=== PATIENT | female | born 1930 | race Caucasian/White ===

== ENCOUNTER → 2017-06-17 | Outpatient (CLI) | payer MEDICARE, OTHER | END | disposition home or self-care (01) | LOC: GMAB 14:39 | PROVIDERS: ATTEND Family Medicine | DX: N39.0 Urinary tract infection, site not specified (principal) ==

== ENCOUNTER → 2018-04-07 | Outpatient (CLI) | payer MEDICARE, OTHER | LOC: GMAB 11:45 | PROVIDERS: ATTEND Family Medicine | DX: M10.9 Gout, unspecified (principal); E03.9 Hypothyroidism, unspecified; I10 Essential (primary) hypertension ==

== ENCOUNTER → 2018-12-15 | Outpatient (CLI) | payer MEDICARE, OTHER ==
--- NOTE | 2018-12-16 12:44 | CT ---
EXAM DESCRIPTION: Abdomen/Pelvis w/wo Contrast: Computed Tomography. CLINICAL HISTORY: LLQ ABDOMINAL PAIN COMPARISON: None. TECHNIQUE: Spiral-axial scans at 5 x 5 mm intervals through the abdomen and pelvis before and after standard dose nonionic IV contrast. No oral contrast. Coronal and sagittal 2 x 2 mm reconstructions, portal venous phase contrast. 5 mm Delayed helical-axial scans, liver through the pubic symphysis, followed by repeat sagittal and coronal reconstructions. No adverse reactions. Total Exam DLP 3019.58 mGy - cm. This exam was performed according to our departmental CT dose-optimization program which includes automated exposure control, adjustment of the mA and/or kV according to patient size and/or use of iterative reconstruction technique; to reduce radiation dose to as low as reasonably achievable (ALARA). FINDINGS: Lung bases and pleura: Pleural thickening versus small effusion left base. Questionable calcification in the left pleural thickening. Minimal atelectasis in the left base. Atherosclerotic aortic and coronary artery calcifications. Liver, Stomach, Spleen, Adrenal Glands: 2 cm cyst in the right hepatic lobe. 3 cm cyst in the left hepatic lobe. Other smaller cysts are also present. Long axis of the right lobe is 20.1 cm. Stomach and other solid organs are negative. Pancreas, Gallbladder, Ducts: Gallbladder slightly distended. Common bile duct not dilated. Pancreas unremarkable. Kidneys and Ureters: Bilateral prominent extrarenal pelves. Small cysts bilaterally. Also 4 cm cyst upper pole left kidney. Minimal cortical thinning left kidney. Bilateral ureters are unremarkable. Mesentery: Bilateral physiologic pararenal thickening with no fluid. No free air or ascites. Aorta: Advanced atherosclerotic calcification with minimal narrowing of the distal lumen, no aorta, significant calcification of the ostia of the major branch vessels and also the proximal celiac axis and branch vessels, renal arteries, and the SMA. Ectasia of bilateral common iliac arteries. Small Bowel: Normal caliber. Terminal Ileum/Cecum: Normal caliber. Distention of the cecum by fecal matter. Appendix negative with normal appearance of the surrounding fat. Colon: Diffuse fecal material. Diverticula in the sigmoid colon with no complications. Evaluation of the pelvis limited due to scattering artifact from left total hip arthroplasty. Pelvic Organs: Distention of the urinary bladder with no radiodense stones. No fluid in the cul-de-sac. Low-density soft tissue mass abutting the base of the bladder, urethra, and vagina with mass effect on the anterior inferior bladder measuring approximately 4.0 x 3.5 x 3.1 cm with circumscribed margins. Spine and Bony Pelvis: Multiple levels of lumbar spondylosis and spondylolisthesis with bilateral posterior fusion construct L3-S1 and moderate anterolisthesis L5-S1. Levoscoliosis lumbar spine. Bilateral arthrosis of the SI joints and the pubic symphysis with narrowing of the left hip joint space. Abdominal Wall/Back Soft Tissues: Diastases at the umbilicus containing fat but no bowel. Minimal bilateral fatty inguinal hernias not containing bowel. IMPRESSION: 1. Multiple hepatic cysts and hepatomegaly, but no abnormal enhancement or focal solid lesions. Gallbladder slightly distended. 2. Bilateral renal cysts minimal cortical thinning and decreased size in the left kidney. 3. Noncystic homogeneous circumscribed 4 cm mass in the lower lumbar pelvis to the left of midline abutting the pubic symphysis, urethra, and vagina. No definite calcifications. Differential includes lymph node, a genitourinary mass, or nonspecific soft tissue mass or complicated cyst. Consider follow-up pelvic ultrasound. 4. Advanced spondylosis lumbar spine with posterior fusion construct and moderate L5-S1 anterolisthesis. 5. Diastases of the umbilicus containing fat but no bowel. Electronically signed by: Osvaldo Boucher MD 12/16/2018 12:41 PM [employer]
== END ==
LOC: LAB.O 10:42
PROVIDERS: ATTEND Family Medicine
DX: R10.9 Unspecified abdominal pain (principal); K76.89 Other specified diseases of liver; R19.04 Left lower quadrant abdominal swelling, mass and lump; N28.1 Cyst of kidney, acquired; M47.896 Other spondylosis, lumbar region; M62.08 Separation of muscle (nontraumatic), other site; Z98.1 Arthrodesis status

== ENCOUNTER → 2018-12-22 | Outpatient (CLI) | payer MEDICARE, OTHER ==
--- NOTE | 2018-12-22 13:44 | US ---
EXAM DESCRIPTION: Pelvis Transvaginal: Ultrasound. CLINICAL HISTORY: 88 years Female PELVIC MASS. Prior GABRIELLA/BSO. Mass is abutting the urinary bladder and vagina on CT scan. Asymptomatic. COMPARISON: CT scan of the abdomen and pelvis 12/15/2018. TECHNIQUE: Endovaginal scanning and transpelvic scanning through the urinary bladder; Torrez-scale and Doppler modes. FINDINGS: Uterus surgically absent. Cul-de-sac contains no fluid. Bilateral ovaries surgically absent. No adnexal mass or free fluid. 4.3 x 3.5 x 2.8 cm hypoechoic relatively homogeneous mass adjacent to the vaginal cuff. Circumscribed margins, posterior acoustic enhancement, minimally vascular. No large calcifications, no fluid compartments, no posterior acoustic shadowing. No other masses. No parenchymal edema. No overlying skin abnormalities. IMPRESSION: 4.3 cm solid relatively homogeneous vascular mass abutting the vagina and urinary bladder. Differential includes obstructed gland, Ai's duct obstruction, and lymph node. Malignancy unlikely, but consider gynecological consult. Electronically signed by: Osvaldo Boucher MD 12/22/2018 1:41 PM [employer]
== END ==
LOC: US 08:18
PROVIDERS: ATTEND Family Medicine
DX: R19.07 Generalized intra-abdominal and pelvic swelling, mass and lump (principal)

== ENCOUNTER → 2019-01-27 | Outpatient (CLI) | payer MEDICARE, OTHER ==
--- NOTE | 2019-01-28 15:33 | US ---
EXAM: Pelvis Transvaginal CLINICAL HISTORY: PELVIC MASS COMPARISON STUDY: CT abdomen pelvis December 15, 2018 pelvic ultrasound December 22, 2018 TECHNICAL: Transabdominal and transvaginal pelvic ultrasound FINDINGS: The solid circumscribed pelvic mass persists with no change in appearance. Doppler blood flow is noted within the lesion. The lesion currently measures 4.7 x 3 cm and was previously 4.2 x 2.8 cm. The uterus and ovaries are surgically absent. There is no large fluid collection in the pelvis. IMPRESSION: 1. Homogeneous solid in the midline of the pelvis is slightly larger than the prior study. Differential possibilities include a broad range of possibilities including lymph node, genitourinary mass, benign or malignant mass of other etiology, given the internal blood flow, complex cystic lesion is thought less likely. Electronically signed by: Eros Blank MD 01/28/2019 3:30 PM CDT
== END ==
LOC: US 13:24
PROVIDERS: ATTEND Obstetrics & Gynecology Gynecologic Oncology
DX: R19.07 Generalized intra-abdominal and pelvic swelling, mass and lump (principal)

== ENCOUNTER → 2019-05-11 | Outpatient (CLI) | payer MEDICARE, OTHER | LOC: LAB.O 08:34 | PROVIDERS: ATTEND Family Medicine | DX: Z00.00 Encounter for general adult medical examination without abnormal findings (principal); I10 Essential (primary) hypertension; E03.9 Hypothyroidism, unspecified; Z13.220 Encounter for screening for lipoid disorders ==

== ENCOUNTER → 2019-05-23 | Outpatient (CLI) | payer MEDICARE, OTHER ==
--- NOTE | 2019-05-24 16:15 | US ---
EXAM DESCRIPTION: Pelvis Transvaginal: Ultrasound. CLINICAL HISTORY: 88 years Female Pelvic Mass. Hysterectomy. COMPARISON: Pelvic ultrasound 01/27/2019. TECHNIQUE: Endovaginal scanning; Torrez-scale and Doppler modes. FINDINGS: Uterus surgically absent measure cuff is visualized. Homogeneous hypoechoic mass in the midline The cuff measuring 4.1 x 3.4 x 2.7 x 2.5 cm. The mass has relatively circumscribed margins and is vascular. Cul-de-sac contains all amount of fluid. Bilateral ovaries were not seen in the adnexa. No adnexal mass. IMPRESSION: 1. 4 cm homogeneous hypoechoic solid mass in the pelvis abutting the vaginal cuff. Prior hysterectomy and oophorectomy. Minimal fluid in the cul-de-sac. Ovaries were not seen. 2. Recommend follow-up MRI scan of the pelvis without and with gadolinium IV contrast. Electronically signed by: Osvaldo Boucher MD 05/24/2019 4:13 PM CDT
== END ==
LOC: US 13:30
PROVIDERS: ATTEND Radiology Diagnostic Radiology
DX: R19.07 Generalized intra-abdominal and pelvic swelling, mass and lump (principal); R18.8 Other ascites

== ENCOUNTER → 2020-06-07 | Outpatient (CLI) | payer MEDICARE, OTHER | LOC: YCFC.O 08:02 | PROVIDERS: ATTEND Family Medicine | DX: I10 Essential (primary) hypertension (principal); E55.9 Vitamin D deficiency, unspecified; E03.9 Hypothyroidism, unspecified; R53.83 Other fatigue; Z13.220 Encounter for screening for lipoid disorders ==